=== PATIENT | female | born 1975 | race Hispanic/Latino ===

== ENCOUNTER 2021-12-26 09:58 | Outpatient (CLI) | payer BC | END 2021-12-26 09:59 | disposition home or self-care (01) | LOC: CSHULT 09:58 | PROVIDERS: ATTEND Family Medicine | DX: R10.9 Unspecified abdominal pain (principal) | CPT/HCPCS: 76770 ==

== ENCOUNTER 2022-01-25 13:25 | Outpatient (CLI) | payer BC | END 2022-01-25 13:26 | disposition home or self-care (01) | LOC: CSHMAMMO 13:25 | PROVIDERS: ATTEND Student in an Organized Health Care Education/Training Program | DX: N63.15 Unspecified lump in the right breast, overlapping quadrants (principal) | CPT/HCPCS: 77066; G0279 ==

== ENCOUNTER 2022-03-12 09:32 | Outpatient (CLI) | payer BC ==
[~2022-03-12 09:32] MED LIST: Magnevist 469MG/ML 20 ML VIAL ONE
== END 2022-03-12 09:33 | disposition home or self-care (01) ==
LOC: CSHMRI 09:32
PROVIDERS: ATTEND Orthopaedic Surgery Hand Surgery
DX: D16.11 Benign neoplasm of short bones of right upper limb (principal); M24.241 Disorder of ligament, right hand

== ENCOUNTER 2022-04-15 09:04 | Emergency (ER) | payer BC | END 2022-04-15 11:21 | disposition home or self-care (01) | LOC: CSHERS 09:04 | DX: S93.421A Sprain of deltoid ligament of right ankle, initial encounter (principal); N73.9 Female pelvic inflammatory disease, unspecified; D25.9 Leiomyoma of uterus, unspecified; X50.1XXA Overexertion from prolonged static or awkward postures, initial encounter; Z87.891 Personal history of nicotine dependence ==